=== PATIENT | female | born 1965 | race Caucasian/White ===

== ENCOUNTER → 2017-02-24 | Outpatient (CLI) | payer OTHER | LOC: WI 07:39 | PROVIDERS: ATTEND Physician Assistant | DX: N63 Unspecified lump in breast (principal); Z98.82 Breast implant status | CPT/HCPCS: 76642; G0204 ==

== ENCOUNTER → 2017-06-17 | Outpatient (CLI) | payer OTHER ==
--- NOTE | 2017-06-18 13:04 | XCELERA REPORT ---
[address] [address] Lower Extremity Venous Evaluation Name: SHAYLA GUTIERREZ Age: 52 yrs Gender: Female : 1965 Patient Status: Outpatient Patient Location: Study Date: 06/17/2017 03:15 PM Procedure: Color flow and duplex imaging of the veins of the right lower extremity as well as the left Common Femoral vein. Reason For Study: RLE PAIN Ordering Physician: MAURI COSTA Performed By: Jannette Zurita Right Sided Venous Evaluation Normal vessel filling wall to wall, compression and augmentation as well as Colour flow down to the infrageniculate veins. Left Sided Venous Evaluation The left common femoral vein is fully compressible. Spontaneous and phasic flow is present in the left common femoral vein. Interpretation Summary No duplex evidence of DVT or obstruction in the right lower extremity nor in the left Common Femoral vein. : MAURI COSTA > Fidel De La Paz
== END ==
LOC: SP 14:38
PROVIDERS: ATTEND Physician Assistant
DX: M79.661 Pain in right lower leg (principal)
CPT/HCPCS: 93971